=== PATIENT | male | born 1970 | race Two or more races ===

== ENCOUNTER → 2021-01-26 | Outpatient (CLI) | payer OTHER ==
[~2021-01-26] MED LIST: LISI5TAB15 PO; METF500T16 PO; atorvastatin
== END ==
LOC: LAB 08:26
PROVIDERS: ATTEND Internal Medicine Gastroenterology
DX: Z01.812 Encounter for preprocedural laboratory examination (principal); Z12.11 Encounter for screening for malignant neoplasm of colon; Z20.822 Contact with and (suspected) exposure to COVID-19
CPT/HCPCS: U0003

== ENCOUNTER → 2021-01-29 | Day surgery (SDC) | payer OTHER ==
[~2021-01-29] MED LIST changes: +ACETAMINOPHEN 325 MG TABLET PO PRN; +ALBUTEROL SULFATE 2.5 MG/3 ML NEBU. NEB PRN; +ATROPINE 0.5 MG/5 ML DISP.SYRIN. IV PRN; +IV RINGERS SOLUTION,LACTATED 1,000 ML IV SCH; +LIDOCAINE 2% PF 5 ML VIAL. ONE; +MIDAZOLAM HCL PF 2 MG/2 ML VIAL. IV PRN; +ONDANSETRON PF 4 MG/2 ML VIAL. IV PRN; +PHENOL ORAL SPRAY 177ML BOTTLE. MM PRN; +PROPOFOL 10,000 MCG/ML (20ML) VIAL IV ONE; +diphenhydrAMINE 50 MG/ML VIAL IV PRN
[2021-01-29 13:33] VITALS: BP 130/97
== END | disposition home or self-care (01) ==
LOC: SURG 11:33 → EDUNIT# 12:30
PROVIDERS: ATTEND Internal Medicine Gastroenterology
DX: Z12.11 Encounter for screening for malignant neoplasm of colon (principal); K64.8 Other hemorrhoids; K57.30 Diverticulosis of large intestine without perforation or abscess without bleeding; K63.89 Other specified diseases of intestine; E11.9 Type 2 diabetes mellitus without complications; I10 Essential (primary) hypertension; Z79.84 Long term (current) use of oral hypoglycemic drugs; Z79.899 Other long term (current) drug therapy; Z98.890 Other specified postprocedural states; Z72.89 Other problems related to lifestyle
CPT/HCPCS: 45378; J2001; J2704; J7120; G0105